=== PATIENT | female | born 1955 | race Caucasian/White ===

== ENCOUNTER 2019-09-10 05:40 | Inpatient (IN) | payer OTHER ==
[2019-08-31 09:18] LABS: HEMATOCRIT 42.2 % (37.0-47.0); HEMOGLOBIN 13.7 gm/dL (12.0-15.0); MCH 28.1 pg (26.0-34.0); MCHC 32.6 g/dL (28.0-37.0); MCV 86.1 fL (80.0-100.0); RBC 4.9 mil/uL (4.20-5.00); WBC 6.5 thou/uL (4.0-11.0)
[2019-08-31 09:19] LABS: URINE BILIRUBIN NEGATIVE (Negative); URINE BLOOD TRACE (Negative); URINE CLARITY CLEAR; URINE COLOR YELLOW; URINE GLUCOSE-RANDOM* NEGATIVE (Negative); URINE KETONES NEGATIVE (Negative); URINE NITRITE-REFLEX NEGATIVE (Negative); URINE PROTEIN (DIPSTICK) NEGATIVE (Negative); URINE UROBILINOGEN 0.2 E.U./dl (0.2-1.0)
[2019-08-31 09:20] LABS: URINE LEUKOCYTES-REFLEX 1+ (Negative)
[2019-08-31 09:27] LABS: SQUAMOUS 4-10 Moderate /LPF (0-3)
[2019-08-31 09:28] LABS: MUCUS 0-3 Light strn/LPF (None Seen); PROTIME 9.9 Seconds (9.3-11.4); URINE RBC 0-2 Rare /HPF (0-2); URINE WBC-REFLEX 0-5 Rare /HPF (0-5)
[2019-08-31 09:29] LABS: BACTERIA-REFLEX 1-9 Few /HPF (None Seen); CALCIUM 9.6 mg/dL (8.5-10.1); CASTS None Seen /LPF (None Seen); CREATININE 1.1 mg/dL (0.6-1.0); CRYSTALS None Seen /LPF (None Seen); POTASSIUM 4.2 mmol/L (3.5-5.1)
--- NOTE | 2019-08-31 15:20 | EKG ---
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
[2019-09-01 01:09] LABS: GLYCOHEMOGLOBIN (HGB A1C) 7.6 % (4.8-5.6)
[~2019-09-10] VITALS: Ht 162.6 cm; Wt 86.2 kg
--- NOTE | ~2019-09-10 | D ---
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 HISTORY OF PRESENT ILLNESS: This healthy 63-year-old female underwent right total hip replacement about 19 years ago. She did well for quite some time, but recently has had more hip pain. Clinical exam and x-rays confirmed failure of the total joint with erosion of the acetabular liner and partial subluxation of the femoral head. HOSPITAL COURSE: The patient was admitted and taken to the operating room. We anticipated that simple revision of the polyethylene liner would be sufficient for this problem. Unfortunately, the wear had extended into the rim of the metal shell causing so much damage that simple exchange of the polyethylene liner was not a feasible option. Therefore, a change in intraoperative planning required removal of the previous acetabular shell and replacement. There was significant damage to the periacetabular bony architecture with some fracturing of the rim extending back in the inferior portion of the acetabulum. This required extensive bone grafting and reconstruction with multi-hole shell, even so I feel the stability is somewhat tenuous and I have recommended very conservative management going forward. Aside from this problem, she tolerated the procedure surprisingly well. She was able to get up and get moving even on the same postoperative day. She has already been seen by therapy several times and has been cleared for independent ambulation using a walker with partial weightbearing. Her Hemovac drain has been removed. She is taking a regular diet. She is tolerating oral pain medication nicely. She feels quite comfortable and is anxious for hospital discharge home today. She has sufficient help with family assistance at home. Given this, we have elected to go ahead with hospital discharge today. I have, however, encouraged her to be quite cautious using a walker for partial weightbearing ambulation and avoid any vigorous activities on the hip over the coming 6-8 weeks. She will resume a diabetic diet. DISCHARGE MEDICATIONS: Include metformin 1000 mg b.i.d. and Janumet 50 mg b.i.d. Buspirone 10 mg 2 tablets twice daily, hydrochlorothiazide 25/325 daily, atenolol 50 mg daily, Zocor 20 mg daily, oxycodone 5 mg q.4-6 hours p.r.n. for pain, aspirin 81 mg b.i.d. She will continue very gentle activity using her walker for protection. I have [facility] [address] [place] [address] DISCHARGE SUMMARY Name: GAYE GALVEZ Room #: 439-P DIS IN M.R.#: [id number] Admission: 09/10/19 Attend Phys: Naveen Freeman MD Discharge: 09/11/19 Date of : 55 Report #: [id number] asked her to call me if any problems or questions. I will plan to see her back in my office on 09/14/2019 and again on 09/24/2019. She should call or come in sooner if any problems or questions. She is advised to avoid any significant weightbearing on the right hip and will use a walker for balance. I have explained that I would expect it will take 2 to 3 months for good healing of the acetabulum and she should be appropriately cautious with her activities during that timeframe. By: [id number] Naveen Freeman MD /nt
[~2019-09-10 05:40] MED LIST: ALEVE220 M1 PO; ATENOLOL 25 MG25 M1 PO; BUSPIRONE HCL10 MG PO; JANUMET 50-1,01 EACH PO; LEXAPRO20 MG PO; MULTI VITAMIN1 EACH PO; PEPPERMINT OIL PO; TRIAMTERENE/HCT1 CA1 PO; XANAX 0.5 MG0.5 M1 PO; ZOCOR 20 MG TAB20 M1 PO
[2019-09-10 07:39] VITALS: BP 129/64
--- NOTE | 2019-09-10 15:52 | NUR ---
INITIAL ASSESSMENT: Pt evaluated for d/c planning needs. Reviewed chart and spoke with nurse and pt. Pt is alert and oriented. Pt lives in house with spouse and was independent with ADL's prior to admission to the hospital. Pt had previous surgery in 2000 and had crutches and cane from that recovery. PT is recommending walker for home use. Will obtain prior to d/c. Pt plans on returning home on d/c from hospital. Will remain available to assist as needed.
--- NOTE | 2019-09-10 17:27 | NUR ---
63 YO FEMALE ADMITTED FROM PACU TO 439. A&OX4. MILI DRSG TO R HIP WITH HEMOVAC INTACT. ICE BAGS REAPPLIED TO R HIP, IV FLUIDS STARTED ORDERED, IV IN R HAND INTACT. ORIENTED PT TO ROOM/CALL LIGHT.
[2019-09-10 19:40] VITALS: BP 121/69
[2019-09-11 03:57] VITALS: BP 116/58
--- NOTE | 2019-09-11 05:00 | NUR ---
ASSUMED PT CARE AT 1900. PT REPORTS MILD PAIN THAT QUICKLY ESCALATES. hYDROCODONE GIVEN WITH NO RELIEF, OXY GIVEN WITH PARTIAL RELIEF. R HIP DRESSING DRY AND INTACT. HEMOVAC DRAINING SMALL AMOUNT. UP TO COMMODE. BLOOD SUGAR WAS HIGH, ORAL MEDS GIVEN. SLIDING SCALE STARTING IN AM.
[2019-09-11 05:32] LABS: ABSOLUTE NEUTROPHILS 10.9 thou/uL (1.4-8.2); HEMATOCRIT 29.1 % (37.0-47.0); HEMOGLOBIN 9.7 gm/dL (12.0-15.0); LYMPHOCYTES 6.7 % (24.0-44.0); MCH 28.6 pg (26.0-34.0); MCHC 33.1 g/dL (28.0-37.0); MCV 86.2 fL (80.0-100.0); MONOCYTES 8.6 % (1.0-8.0); PLATELET COUNT 249 thou/uL (150-400); POLYS 84.7 % (36.0-66.0); RBC 3.38 mil/uL (4.20-5.00); RDW 13.8 % (10.5-14.5); WBC 12.8 thou/uL (4.0-11.0)
[2019-09-11 05:47] LABS: ALBUMIN 3.1 g/dL (3.4-5.0); CALCIUM 7.6 mg/dL (8.5-10.1); CREATININE 1.2 mg/dL (0.6-1.0); MAGNESIUM 1.4 mg/dL (1.8-2.4); PHOSPHORUS 3.6 mg/dL (2.5-4.9); TOTAL PROTEIN 5.8 g/dL (6.4-8.2)
[2019-09-11 08:38] VITALS: BP 115/60
--- NOTE | 2019-09-11 08:44 | NUR ---
[facility] [employer] to deliver walker prior to d/c today.
--- NOTE | 2019-09-11 10:49 | NUR ---
PT CARE ASSUMED AT 0700. A&Ox4. PT WAS EVALUATED BY PT. AND IS READY TO DISCHARGE BY PT. HEMOVAC REMOVED WITH NO COMPLICATIONS AND NO DRAINAGE. IV PATENT WITH NO REDNESS OR SWELLING. PT GIVEN A ONE TIME DOSE OF MAGNESIUM. BLOOD SUGARS NEEDING COVERAGE. MILI DRESSING INTACT. NEW ICE PACK PLACED. [facility] AND [facility] IN PLACE. PT UP WITH NURSE TO THE BATHROOM AND WALKED BYRD AND STAIRS WITH PT. PT IS UNDER 20LBS WEIGHT BARING ON SURGERY SITE. TOE TOUCH. UP WITH WALKER. FLUIDS RUNNING. BED IN LOW POSITION WITH BED ALARM ON AND LOCKED. CALL LIGHT IN PLACE.
--- NOTE | 2019-09-11 14:30 | NUR ---
OT ORDERED. 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 PATIENT STATES THAT SHE WAS OKAY'D FOR HOME BY PHYSICAL THERAPY AFTER DEMONSTRATING ABILITY TO WALK AND DO STAIRS W/WALKER/CRUTCHES WHILE ADHERING TO WEIGHT BEARING PRECA[employer]IONS. PATIENT DECLINED OT AT THIS TIME AND FEELS CONFIDENT THAT SHE WILL BE ABLE TO GO HOME TODAY W/HER OFF WORK UNTIL September. WILL D/C FROM OT PER PATIENT'S REQUEST.
--- NOTE | 2019-09-11 15:21 | O ---
[facility] [place] [address] OPERATIVE REPORT Name: GAYE GALVEZ Room #: 439-P [facility] IN M.R.#: [id number] Admission: 09/10/19 Attend Phys: Naveen Freeman MD Discharge: Date of : 55 Report #: [id number] THIS REPORT FOR: //name// CC: Cleopatra Freeman DATE OF SERVICE: 09/10/2019 PREOPERATIVE DIAGNOSIS: Failed right total hip arthroplasty. POSTOPERATIVE DIAGNOSIS: Failed right total hip arthroplasty. PROCEDURE: Revision of right total hip arthroplasty. SURGEON: Naveen Freeman MD INDICATIONS: This 63-year-old female has had problems with bilateral hip arthritis for many years. This started many years ago with both degenerative arthritis and apparent avascular necrosis. She underwent bilateral total hip replacements approximately 18-19 years ago. Her original implants were Biomet Taperloc stems with RB metal shell acetabulum and polyethylene liners. She has done generally well over the past 19 years, functioning nicely with minimal hip discomfort. Recently, she has developed more significant bilateral hip pain. Clinical exam and radiographic findings demonstrate obvious deformity of the acetabular liner with superior medial migration of the femoral head consistent with excessive wear or disruption of the polyethylene liner. Her symptoms are greatest on the right side. We discussed this at some length reviewing various treatment options. Her clinical exam and radiographic findings do not suggest problems with loosening of the metal components nor infection. Instead, the issue seems to be limited to excessive wear of the polyethylene liner. Given this, we discussed the option of simple exchange of the polyethylene liner as the most reasonable option. We also discussed that more aggressive measures might be necessary if we find the cup is loose or the femoral stem is loose or there are other factors, which would prevent simple exchange of the polyethylene liner. The patient and her understand this well and elected to go ahead with right hip revision surgery. DESCRIPTION OF PROCEDURE: The patient was taken to the operating room where she was placed under general anesthesia. Prophylactic intravenous antibiotics were administered. She was turned to the left lateral decubitus position. The right hip, thigh and leg were meticulously prepped and draped. A slightly curving skin incision was made through her old surgical scar, exposing the greater trochanter and then the posterior aspect of the hip joint. The old scar and capsule were taken down in one block exposing the hip joint. The capsule and scar was preserved and tagged with several #2 FiberWire sutures for later repair. The intraarticular contents revealed obvious synovial hypertrophy and [address] [address] OPERATIVE REPORT Name: GAYE GALVEZ Room #: 439-P [facility] IN [facility].#: [id number] Admission: 09/10/19 Attend Phys: Naveen Freeman MD Discharge: Date of : 55 Report #: [id number] synovial staining consistent with some chronic ltvih-jc-jstks wear. A specimen was obtained and sent for culture, although there was no evidence of purulence nor any other findings which would suggest joint infection. The synovial hypertrophy was debrided and gradually good exposure of the hip joint itself was established. There was obvious excessive wear and partial disruption of the polyethylene liner consistent with the preoperative findings. The femoral head was removed from the Pat taper femoral neck and taken off the field. This allowed better exposure of the acetabulum. The damage liner was removed. The metal shell was thoroughly inspected. One of the fixation screws appeared to be slightly loose and that was removed. I considered replacing a screw, but after 1 or 2 attempts, it seems that there was insufficient bone stock behind the shell to allow good screw purchase. The shell itself seemed to be solid and stable; therefore, I did not feel further screw fixation was probably necessary. A new polyethylene liner was brought onto the field. This was positioned with the elevated rim at about the 10 o'clock posterior position. The liner was snapped into place and initially it seemed to seat acceptably and appeared to be stable to manual manipulation. The hip was reduced with a new +0 neck length. The hip is slightly unstable mostly at the posterior inferior corner. This was improved slightly when using a 32 mm head size rather than the 28 mm head, which was used previously. A high wall liner was trialed and the elevated rim placed at about the 9 o'clock posterior position. The hip seemed to be most stable when the liner was most prominent at the posterior inferior aspect. Initially, I felt this was quite satisfactory and anticipated accepting this position and was ready to proceed with placement of the femoral head. However, during several trial reductions, the polyethylene liner, which seemed to be initially stably seated and in good position, became unstable and moved from its position in the metal shell. This was quite concerning as it seemed the locking ring was not clearly functioning in an acceptable fashion to hold the polyethylene liner in appropriate position. This was thoroughly inspected and several more attempts were made to get a good solid and secure fixation. Ultimately, it became apparent that the wear of the femoral head at the superior aspect of the shell had deformed and worn the locking ring sufficiently that it was no longer functional. In fact, the shell itself was deformed in this region and I did not feel I could apply a new locking ring to this shell and establish adequate fixation. Consequently, I felt my initial plan for simple exchange of the polyethylene liner was not feasible. At this point, I considered further options including leaving the shell in place and attempting to cement a smaller liner in position. I felt this option was probably not optimal and felt the best approach was simply to remove the metal shell with replacement with a new metal shell and a new liner. The fixation screw was removed from the shell and the application device was screwed into place, allowing good purchase on the shell. Then osteotomes were used to free up the metal shell from the surrounding periacetabular bone. This was accomplished with some difficulty, but the shell seemed to be freed up adequately in the superior, posterior and anterior aspect. It was more difficult to get osteotome penetration in the more inferior aspect of the quadrant. Once adequate debridement had been performed, [address] [address] OPERATIVE REPORT Name: GAYE GALVEZ Room #: 439-P ADM IN M.R.#: [id number] Admission: 09/10/19 Attend Phys: Naveen Freeman MD Discharge: Date of : 55 Report #: [id number] the shell was hammered out of the pelvis. Once retrieved; however, it was obvious that there was a significant amount of bone loss with some of the bone coming out with the shell. There was also a fracture in the rim of the acetabulum extending in the posterior inferior aspect. Once this shell had been removed and the periacetabular bone could be more thoroughly inspected, it was also clear that there was rather deficient periacetabular bone. There was an area of penetration in the medial wall and the intrapelvic soft tissue was easily palpable with a fingertip. There was also significant cystic destruction of bone in the mid and superior aspect of the acetabulum making reconstruction with a new shell quite difficult. The fracture in the posterior inferior aspect also disrupted the rim, which made it impossible to achieve a solid and tight rim fit. Given this difficulty with bone destruction and loss of a satisfactory acetabular rim, I felt the best option was with a multi-hole plate and extensive bone grafting to try to establish a new acetabulum. A reamer was used very gently mostly to freshen up the bony surface and taken any areas of prominence. I felt it was best not to advance very far in size as I could not afford to lose any more bone. I moved from the previous 48 mm cup up to a 50 mm cup and this seemed to seat quite acceptably. There was, however, insufficient bone stock to establish a solid rim fit or a solid purchase of the cup without additional screw fixation. At this point, a frozen femoral head had been brought on the field and thawed. This was morcellized using the reamers essentially the entire head was used in a morcellized fashion. Some of the deepest portion of the head was left as a saucer and this was placed deep in the acetabulum to fill the medial wall defect. The rest of the bone graft was packed into the acetabulum and packed into the areas of cystic degeneration making a suitable base for placement of a new cup. Once this had been prepared, the new reconstruction 50 mm RingLoc Regenerex cup was brought on to the field. This was carefully tried in several positions trying to achieve optimal placement, so that screw fixation in the remaining deficient bone would be possible. I was also concerned that the previous attempts at hip reduction demonstrated that the hip was slightly unstable at the posterior inferior quadrants and I felt trying to add some posterior rim in this area would be helpful and necessary to achieve a satisfactory stable hip. Taking these considerations into account, the optimal position for the cup seemed to be somewhat more vertical than I would normally except. In this position; however, I could achieve 3 screws which seemed to have adequate bone for purchase and achieved satisfactory coverage in the posterior inferior quadrant when the cup was tipped out in the more suitable rotation off of vertical. The screw options were less optimal and the coverage at the posterior inferior quadrant was also less optimal. After considering this for some time, I selected what I felt was the best compromise position for the cup, which [facility] [address] [place] [address] OPERATIVE REPORT Name: GAYE GALVEZ Room #: 439-P ADM IN M.R.#: [id number] Admission: 09/10/19 Attend Phys: Naveen Freeman MD Discharge: Date of : 55 Report #: [id number] placed the cup slightly more vertical than I would normally accept, but with more anteversion to help protect the posterior inferior quadrant from hip instability. The cup was gently hammered into position. It did seem to seat nicely and seemed to have some purchase around the remaining acetabular rim and came to a nice stable resting point against the remaining medial grafted bone. I attempted to fill any screw holes, which demonstrated acceptable bone, but only 3 screw holes seemed to be functional in this regard, 3 screws were placed and each seemed to have satisfactory purchase and held the cup in adequate position. The area of acetabular fracture was below the midpoint of the acetabulum and extending posteriorly along the posterior column. There was slight offset here, but no obvious movement once the cup had been positioned and the screws were tight. This area was, however, packed fully with morcellized bone graft to promote good healing. Once the new metal cup had been positioned and screwed into place, its stability was tested with firm stress manually. The cup seemed to be stable and in adequate position. A 50 x 32-mm polyethylene liner was then inserted using the high wall component. The elevated rim was positioned at about the 9 o'clock posterior position, which seemed to adequately stabilize the hip. A 32 mm cobalt chrome femoral head was then applied using a +3 mm neck length. The head was tapped into position and seated nicely. The hip was reduced and alignment, range of motion, leg length and stability were assessed and felt to be satisfactory. There appeared to be a better stability at the posterior and inferior corner and the hip seemed stable, even with flexion 90 degrees and moderate internal rotation. The hip seemed to be quite acceptably aligned when the hip was extended and flexed or extended only moderately. At this point, I felt the overall alignment and stability of this reconstructed hip was satisfactory even though I was still somewhat disappointed with the moderately vertical orientation of the cup. Nevertheless, I felt this was in optimal position, weighing the parameters, which I have noted previously. At this point, any remaining bone graft and the femoral head was packed around the posterior aspect of the acetabulum. One gram of vancomycin powder was distributed in the wound and around the components. The short external rotators and capsule, which had been taken down as one unit and retained, were then repaired back to the greater trochanter using the several #2 FiberWire sutures previously placed. This resulted in satisfactory additional hip stability with a stable overall repair. A single Hemovac was then left the wound exiting through a separate stab incision. The fascia was then closed with multiple #1 Vicryl sutures. The subcutaneous tissues were closed with 0 Monocryl. The skin was closed with skin gael. Sterile dressing was applied. The patient was awakened and returned to recovery room in good condition. <ELECTRONICALLY SIGNED> By: Naveen Freeman MD 09/11/19 1521 [id number] Naveen Freeman MD /nt
[2019-09-11 15:29] VITALS: BP 115/60
== END 2019-09-11 16:15 | disposition home or self-care (01) | DRG 468 ==
LOC: TBA 05:40 → 4S 05:40 → PRE 06:49 → 4S 13:26 → PRE 13:29 → ENTRNSPT 09-11 16:02 → 4S 09-11 16:15
PROVIDERS: Internal Medicine; ADMIT Orthopaedic Surgery
PROC: 0SP90JZ Removal of Synthetic Substitute from Right Hip Joint, Open Approach (ICD-10-PCS; principal; 2019-09-10)
PROC: 0SR9029 Replacement of Right Hip Joint with Metal on Polyethylene Synthetic Substitute, Cemented, Open Approach (ICD-10-PCS; 2019-09-10)
DX: T84.090A Other mechanical complication of internal right hip prosthesis, initial encounter (principal); I12.9 Hypertensive chronic kidney disease with stage 1 through stage 4 chronic kidney disease, or unspecified chronic kidney disease; M16.0 Bilateral primary osteoarthritis of hip; N18.3 Chronic kidney disease, stage 3 (moderate); Z96.643 Presence of artificial hip joint, bilateral; E11.22 Type 2 diabetes mellitus with diabetic chronic kidney disease; K58.9 Irritable bowel syndrome, unspecified; K21.9 Gastro-esophageal reflux disease without esophagitis; E78.5 Hyperlipidemia, unspecified; J45.990 Exercise induced bronchospasm; F41.9 Anxiety disorder, unspecified; F32.9 Major depressive disorder, single episode, unspecified; Z88.6 Allergy status to analgesic agent; Z88.1 Allergy status to other antibiotic agents; Z88.0 Allergy status to penicillin; Z79.4 Long term (current) use of insulin; Z90.710 Acquired absence of both cervix and uterus; Z90.722 Acquired absence of ovaries, bilateral; Z79.899 Other long term (current) drug therapy; Z79.82 Long term (current) use of aspirin; Z79.01 Long term (current) use of anticoagulants; Z28.21 Immunization not carried out because of patient refusal
CPT/HCPCS: 10102; 50010; 50101; 50382; 50414; 51412; 53000; 56521; 56525; 56530; 57095; 62110; 62900; 70005